=== PATIENT | female | born 1955 | race Caucasian/White ===

== ENCOUNTER → 2018-07-21 | Outpatient (CLI) | payer OTHER ==
[~2018-07-21] MED LIST: HYDROCODONE PO; LISINOPRIL10 MG PO
== END ==
LOC: MAMMO 12:36
PROVIDERS: ATTEND Obstetrics & Gynecology
DX: Z12.31 Encounter for screening mammogram for malignant neoplasm of breast (principal)
CPT/HCPCS: 77067

== ENCOUNTER → 2019-07-22 | Outpatient (CLI) | payer OTHER ==
--- NOTE | 2019-07-28 09:30 | Diagnostic Imaging Report ---
#[id number] - [id number] #BILATERAL DIGITAL SCREENING MAMMOGRAM WITH CAD: 07/22/2019 CLINICAL: Routine screening. Comparison is made to exams dated: 07/21/2018 mammogram and 07/15/2017 mammogram - [facility]. Current study contains 4 films. The tissue of both breasts is predominantly fatty. Current study was also evaluated with a Computer Aided Detection (CAD) system. No significant masses, calcifications, or other findings are seen in either breast. IMPRESSION: NEGATIVE There is no mammographic evidence of malignancy. A 1 year screening mammogram is recommended. The patient will be notified by letter of the results. NATHANAEL GRAF M.D. ct/penrad:07/24/2019 17:36:46 Ase Certified Technician: Lolly MOODY(Brandon)(M), [facility] letter sent: Normal Exam Mammogram BI-RADS: 1 Negative
== END ==
LOC: MAMMO 12:43
PROVIDERS: ATTEND Obstetrics & Gynecology
DX: Z12.31 Encounter for screening mammogram for malignant neoplasm of breast (principal)
CPT/HCPCS: 77067

== ENCOUNTER → 2020-07-28 | Outpatient (CLI) | payer OTHER | LOC: MAMMO 12:35 | PROVIDERS: ATTEND Obstetrics & Gynecology | DX: Z12.31 Encounter for screening mammogram for malignant neoplasm of breast (principal) | CPT/HCPCS: 77067 ==

== ENCOUNTER → 2021-03-03 | Outpatient (CLI) | payer OTHER | LOC: US 12:43 | PROVIDERS: ATTEND Family Medicine | DX: E04.1 Nontoxic single thyroid nodule (principal) | CPT/HCPCS: 10005; 88172; 88173; 88305 ==

== ENCOUNTER → 2021-08-02 | Outpatient (CLI) | payer OTHER | LOC: MAMMO 12:32 | PROVIDERS: ATTEND Obstetrics & Gynecology | DX: Z12.31 Encounter for screening mammogram for malignant neoplasm of breast (principal) | CPT/HCPCS: 77067 ==

== ENCOUNTER → 2022-03-14 | Outpatient (CLI) | payer OTHER | LOC: US 07:23 | PROVIDERS: ATTEND Family Medicine | DX: R94.5 Abnormal results of liver function studies (principal) | CPT/HCPCS: 76705 ==

== ENCOUNTER → 2022-09-07 | Outpatient (CLI) | payer OTHER | LOC: MAMMO 08:39 | PROVIDERS: ATTEND Obstetrics & Gynecology | DX: Z12.31 Encounter for screening mammogram for malignant neoplasm of breast (principal) | CPT/HCPCS: 77067 ==

== ENCOUNTER → 2023-09-11 | Outpatient (REF) | payer OTHER | LOC: MAMMO 12:22 | PROVIDERS: ATTEND Obstetrics & Gynecology | DX: Z12.31 Encounter for screening mammogram for malignant neoplasm of breast (principal) | CPT/HCPCS: 77067 ==

== ENCOUNTER 2024-04-07 09:27 | Emergency (ER) | payer MEDICARE ==
[~2024-04-07] VITALS: Ht 162.6 cm; Wt 59.4 kg
[2024-04-07 09:37] VITALS: O2SAT 100
[2024-04-07] MEDS: KETOROLAC TROMETHAMINE 60 MG/2 ML VIAL IM ONE (09:57)
[2024-04-07] MEDS: CYCLOBENZAPRINE HCL 10 MG TAB PO ONE (09:57)
[2024-04-07] MEDS ORDERED: CYCLOBENZAPRINE10 MG PO (10:00)
== END 2024-04-07 10:25 | disposition home or self-care (01) ==
LOC: ER 10:18
DX: M54.42 Lumbago with sciatica, left side (principal); I10 Essential (primary) hypertension
CPT/HCPCS: 99283; J1885

== ENCOUNTER → 2024-04-13 | Outpatient (REF) | payer MEDICARE ==
[~2024-04-13] MED LIST changes: +CYCLOBENZAPRINE10 MG PO
== END ==
LOC: DX 08:46
PROVIDERS: ATTEND Internal Medicine Endocrinology, Diabetes & Metabolism
DX: M85.88 Other specified disorders of bone density and structure, other site (principal)
CPT/HCPCS: 77080

== ENCOUNTER → 2024-09-28 | Outpatient (REF) | payer MEDICARE | LOC: MAMMO 10:14 | PROVIDERS: ATTEND Family Medicine | DX: Z12.31 Encounter for screening mammogram for malignant neoplasm of breast (principal) | CPT/HCPCS: 77067 ==

== ENCOUNTER → 2025-09-22 | Outpatient (REF) | payer MEDICARE | LOC: US 13:04 | PROVIDERS: ATTEND Internal Medicine Endocrinology, Diabetes & Metabolism | DX: E04.2 Nontoxic multinodular goiter (principal) | CPT/HCPCS: 76536 ==